=== PATIENT | male | born 1960 | race American Indian/Alaskan Native ===

== ENCOUNTER 2017-08-01 23:27 | Emergency (ER) | payer MEDICAID, OTHER ==
[2017-08-01 23:28] VITALS: BMI 29.6
[2017-08-01 23:34] VITALS: TEMP 98.1
[2017-08-01] MEDS ORDERED: DiphenhydrAMINE 50 mg/ml Inj IVP STA (23:44)
--- NOTE | 2017-08-01 23:44 | C.PDOC ---
History Of Present Illness 56 year old male presents to the Ed for evaluation of swelling of his legs and itchiness to his face after using dye for his greer earlier today. Patient denies SOB, CP, lip swelling, tongue, swelling, nausea, vomit, fever. Chief Complaint (Nursing): Allergic Reaction History Per: Patient History/Exam Limitations: no limitations Onset/Duration Of Symptoms: Hrs Current Symptoms Are (Timing): Still Present Context: Other (greer dye) Associated Symptoms: Skin Rash, Swelling Home/EMS Treatment: None Recent travel outside of the [place]: No Additional History Per: Patient Past Medical History Reviewed: Historical Data, Nursing Documentation, Vital Signs Vital Signs: Last Vital Signs Temp 98.1 F 08/01/17 23:30 Pulse 76 08/02/17 00:30 Resp 18 08/02/17 00:30 BP 122/80 08/02/17 00:30 Pulse Ox 98 08/02/17 01:08 - Medical History PMH: Gastritis, HTN Denies: Diabetes, Hepatitis, HIV, Chronic Kidney Disease, Seizures, Sexually Transmitted Disease Surgical History: No Surg Hx Family History: States: Unknown Family Hx - Social History Hx Alcohol Use: Yes Hx Substance Use: No - Immunization History Hx Tetanus Toxoid Vaccination: No Hx Influenza Vaccination: No Hx Pneumococcal Vaccination: No Review Of Systems Constitutional: Negative for: Fever, Chills ENT: Negative for: Mouth Swelling, Throat Swelling Cardiovascular: Negative for: Chest Pain Respiratory: Negative for: Cough, Shortness of Breath Gastrointestinal: Negative for: Nausea, Vomiting, Abdominal Pain Genitourinary: Negative for: Dysuria, Hematuria Skin: Positive for: Rash Neurological: Negative for: Weakness, Numbness Physical Exam - Physical Exam Appears: Non-toxic, No Acute Distress Skin: Normal Color, Warm, Dry Head: Atraumatic, Normacephalic, Other (erythema left face) Eye(s): bilateral: Normal Inspection Nose: No Discharge, No Deformity Oral Mucosa: Moist Tongue: No Swelling Lips: Swelling (lower lips) Neck: Normal ROM, Supple Chest: Symmetrical Cardiovascular: Rhythm Regular, No Murmur Respiratory: Normal Breath Sounds, No Rales, No Rhonchi, No Wheezing Gastrointestinal/Abdominal: Soft, No Tenderness, No Guarding, No Rebound Extremity: Normal ROM, No Pedal Edema, No Calf Tenderness, Capillary Refill (< 2 seconds), No Deformity, Swelling (lower legs) Neurological/Psych: Oriented x3, Normal Speech, Normal Cognition Gait: Steady ED Course And Treatment O2 Sat by Pulse Oximetry: 98 (On RA) Pulse Ox Interpretation: Normal Medical Decision Making Medical Decision Making: Impression : allergic reaction to greer dye Plan: * IV fluids * Benadryl 50 mg IVP * Pepcid 20 mg iVP * Solumedrol 125 mg IVP On reevaluation patient appears to have improved from the swelling of the lips and will be d/c home. Disposition Counseled Patient/Family Regarding: Diagnosis - Disposition Referrals: [facility] [Outside] Disposition: HOME/ ROUTINE Disposition Time: 01:06 Condition: STABLE Prescriptions: DiphenhydrAMINE [Benadryl] 25 mg PO Q6 #14 cap Methylprednisolone [Medrol Dose Pack (21 tabs)] 4 mg PO DAILY #21 mg Instructions: General Allergic Reaction (ED) Forms: [facility] (Greek) - POA Present On Arrival: None - Clinical Impression Clinical Impression: Allergic reaction - Scribe Statement The provider has reviewed the documentation as recorded by the Scribe Gareth Brown All medical record entries made by the Scribe were at my direction and personally dictated by me. I have reviewed the chart and agree that the record accurately reflects my personal performance of the history, physical exam, medical decision making, and the department course for this patient. I have also personally directed, reviewed, and agree with the discharge instructions and disposition.
[2017-08-01] MEDS ORDERED: DiphenhydrAMINE 50 mg/ml Inj ONE (23:46)
[2017-08-02 00:31] VITALS: BP 122/80; RESP 18
[2017-08-02 01:18] VITALS: PULSE 82; O2SAT 97
== END 2017-08-02 01:19 | disposition home or self-care (01) ==
LOC: C.ER 23:27
DX: T78.40XA Allergy, unspecified, initial encounter (principal)
CPT/HCPCS: 96374; 96375; 99284; J1200; J2930

== ENCOUNTER 2018-07-13 21:53 | Emergency (ER) | payer MEDICAID ==
[2018-07-13 21:54] VITALS: BMI 29.6
[2018-07-13] MEDS ORDERED: Sodium Chloride 0.9% 1,000 ML IV ONE (22:28)
[2018-07-13] MEDS ORDERED: Morphine 4 MG/ML VIAL ONE (22:44)
[2018-07-13] MEDS ORDERED: Sodium Chloride 0.9% 1,000 ML ONE (22:44)
--- NOTE | 2018-07-13 23:23 | C.PDOC ---
History Of Present Illness 57 y/o male, with history of chronic lower back pain and kidney stones, presents to ED stating that he started developing left flank pain earlier today. Patient denies trauma to the back. States that he was just walking when the pain started. Patient reports of some nausea and mild dysuria but no vomiting or diarrhea. Thinks he has some hematuria. Time Seen by Provider: 07/13/18 22:03 Chief Complaint (Nursing): Abdominal Pain History Per: Patient History/Exam Limitations: no limitations Onset/Duration Of Symptoms: Hrs Current Symptoms Are (Timing): Still Present Past Medical History Reviewed: Historical Data, Nursing Documentation, Vital Signs Vital Signs: Last Vital Signs Temp 98.2 F 07/13/18 21:55 Pulse 84 07/13/18 21:55 Resp 16 07/13/18 21:55 BP 178/119 H 07/13/18 21:55 Pulse Ox 100 07/13/18 21:55 - Medical History PMH: Gastritis, HTN Denies: Diabetes, Hepatitis, HIV, Chronic Kidney Disease, Seizures, Sexually Transmitted Disease Family History: States: No Known Family Hx - Social History Hx Alcohol Use: Yes Hx Substance Use: No - Immunization History Hx Tetanus Toxoid Vaccination: No Hx Influenza Vaccination: No Hx Pneumococcal Vaccination: No Review Of Systems Constitutional: Negative for: Fever Cardiovascular: Negative for: Chest Pain Respiratory: Negative for: Shortness of Breath Gastrointestinal: Positive for: Nausea, Other (Left flank pain). Negative for: Vomiting, Diarrhea Genitourinary: Positive for: Dysuria, Hematuria Musculoskeletal: Positive for: Back Pain (lower) Skin: Negative for: Rash Physical Exam - Physical Exam Appears: Non-toxic, In Acute Distress (Clutching L flank) Skin: Warm, Dry, No Rash Head: Atraumatic, Normacephalic Eye(s): bilateral: Normal Inspection Oral Mucosa: Moist Neck: Supple Chest: Symmetrical Cardiovascular: Rhythm Regular, No Murmur Respiratory: Normal Breath Sounds, No Rales, No Rhonchi, No Wheezing Gastrointestinal/Abdominal: Tenderness (to L flank) Extremity: Bilateral: Normal Color And Temperature, Normal ROM Neurological/Psych: Oriented x3, Normal Speech, Normal Motor, Normal Sensation ED Course And Treatment - Laboratory Results Result Diagrams: 07/13/18 23:27 07/13/18 23:27 O2 Sat by Pulse Oximetry: 100 (RA) Pulse Ox Interpretation: Normal - CT Scan/US Abd/Pel CT Other Rad Studies (CT/US): Read By Radiologist, Radiology Report Reviewed CT/US Interpretation: FINDINGS: LUNG BASES: There is parenchymal scarring and bronchial wall thickening at the right pulmonary base. Small bulla left pulmonary base. The heart is normal size. LIVER: Unremarkable. GALLBLADDER AND BILE DUCTS: The gallbladder appears within normal limits. No radioopaque gallstones are seen. No biliary ductal dilatation is evident. PANCREAS: Unr emarkable. SPLEEN: Unremarkable. ADRENAL GLANDS: Unremarkable. KIDNEYS, URETERS, AND BLADDER: There is mild left hydronephrosis and mild left hydroureter to the level of L5-S1 where there is a 5 mm partially obstructing calculus. There are proximal left periureteral inflammatory changes. There are no bladder calculi. there is a mid pole left renal cyst. There is a 3 mm posterior aspect isodense bulge of the left kidney, see series 3 image 58. Recommend ultrasound for further evaluation. This is not a typical dromedary hump. STOMACH AND BOWEL: Unremarkable appearance of the stomach and bowel. No evidence of bowel obstruction. No evidence suggesting enteritis or colitis. APPENDIX: No evidence of acute appendicitis on CT examination. PERITONEUM: No free fluid. No free air. LYMPH NODES: No lymphadenopathy is evident. VASCULATURE: No evidence of abdominal aortic aneurysm. BONES: No aggressive appearing osseous lesion. No acute osseous pathology evident. IMPRESSION: 1. T here is mild left hydronephrosis and mild left hydroureter to the level of L5-S1 where there is a 5 mm partially obstructing calculus. There are proximal left periureteral inflammatory changes. There are no bladder calculi. 2. There is a 3 mm posterior aspect isodense bulge of the left kidney, see series 3 image 58. Recommend ultrasound for further evaluation. This is not a typical dromedary hump. 3. There is parenchymal scarring and bronchial wall thickening at the right pulmonary base. Small bulla left pulmonary base. The heart is normal size. Medical Decision Making Medical Decision Making: Plan: --Abd/Pel CT --Bloodwork --Morphine 4 mg IV --IV fluids 1L --Toradol 30 mg IV --Urinalysis 2338- Patient re-evaluated. Appears much more comfortable, no longer clutching his flank, able to lay supine. CT results discussed. Awaiting bloodwork and UA. 0000- Lab results discussed with patient. Advised him to follow up with urology, he has seen one multiple times before (does not remember name, "spring Manley) for previous kidney stones. Will discharge with Rx for Flomax, Percocet and Ibuprofen for pain, and Zofran. Disposition - Disposition Disposition: HOME/ ROUTINE Disposition Time: 00:00 Condition: STABLE Additional Instructions: LEV GORDON, thank you for letting us take care of you today. Your provider was Anne Briceño MD and you were treated for LT FLANK PAIN. The emergency medical care you received today was directed at your acute symptoms. If you were prescribed any medication, please fill it and take as directed. It may take several days for your symptoms to resolve. Return to the Emergency Department if your symptoms worsen, do not improve, or if you have any other problems. Please contact your doctor or call one of the physicians/clinics you have been referred to that are listed on the Patient Visit Information form that is included in your discharge packet. Bring any paperwork you were given at discharge with you along with any medications you are taking to your follow up visit. Our treatment cannot replace ongoing medical care by a primary care provider outside of the emergency department. Thank you for allowing the [facility] team to be part of your care today. If you had an X-Ray or CT scan: A Radiologist will review the ED reading if any change in treatment is needed we will contact you. If you had a blood, urine, or wound culture: It will take several days for the results, if any change in treatment is needed we will contact you. If you had an STI test: It will take 48 hours for the results. Please call after 1 week if you have not heard back. Please follow up with your urologist as soon as possible. Prescriptions: oxyCODONE/Acetaminophen [Percocet 5/325 mg Tab] 1 ea PO Q6H PRN #9 tab PRN Reason: Pain, Severe (8-10) Instructions: Kidney Stones (DC) Forms: [facility] (Indonesian) - Clinical Impression Clinical Impression: Kidney stone - Scribe Statement The provider has reviewed the documentation as recorded by the Krystal Rosas Provider Attestation: All medical record entries made by the Krystal were at my direction and personally dictated by me. I have reviewed the chart and agree that the record accurately reflects my personal performance of the history, physical exam, medical decision making, and the department course for this patient. I have also personally directed, reviewed, and agree with the discharge instructions and disposition.
[2018-07-13 23:36] LABS: BASO # 0.1 K/uL (0.0-0.2); BASO % 0.6 % (0.0-2.0); EOS # 0.1 K/uL (0.0-0.7); EOS % 1.2 % (0.0-4.0); HEMOGLOBIN 12.4 g/dL (12.0-18.0); LYMPH # 2.4 K/uL (1.0-4.3); LYMPH % 24.4 % (20.0-40.0); MEAN CELL VOLUME 80.4 fL (80.0-94.0); MEAN CORPUSCULAR HEMOGLOBIN 25.2 pg (27.0-31.0); MEAN CORPUSCULAR HGB CONC 31.4 g/dL (33.0-37.0); MEAN PLATELET VOLUME 8.3 fL (7.2-11.7); MONO # 0.6 K/uL (0.0-0.8); MONO % 6.2 % (0.0-10.0); NEUT # 6.6 K/uL (1.8-7.0); NEUT % 67.6 % (50.0-75.0); NRBC % 0.1 % (0.0-2.0); RBC 4.92 Mil/uL (4.40-5.90); RED CELL DISTRIBUTION WIDTH 12.6 % (11.5-14.5); WHITE BLOOD COUNT 9.7 K/uL (4.8-10.8)
[2018-07-13 23:46] LABS: BLOOD UREA NITROGEN 16 mg/dL (9-20); CALCIUM 9.6 mg/dl (8.6-10.4); GFR NON-AFRICAN AMERICAN > 60
[2018-07-14 00:04] LABS: URINE BACTERIA RARE (<OCC); URINE BILIRUBIN NEGATIVE (NEGATIVE); URINE BLOOD 3+ (NEGATIVE); URINE CLARITY Hazy (Clear); URINE COLOR Yellow (YELLOW); URINE GLUCOSE (UA) NORMAL (Normal); URINE LEUKOCYTE ESTERASE NEG Leu/uL (Negative); URINE PROTEIN 2+ mg/dL (NEGATIVE); URINE UROBILINOGEN NORMAL mg/dL (0.2-1.0)
[2018-07-14 00:45] VITALS: BP 148/65; PULSE 83; RESP 16; TEMP 98.3
--- NOTE | 2018-07-14 10:00 | CT ---
Date of service: 07/13/2018 PROCEDURE: CT Abdomen and Pelvis without intravenous contrast HISTORY: flank pain h/o kidney stone COMPARISON: None. TECHNIQUE: CT scan of the abdomen and pelvis was performed without administration of intravenous contrast. Oral contrast was not administered. Coronal and sagittal reformatted images were obtained. . Radiation dose: Total exam DLP = 583.19 mGy-cm. This CT exam was performed using one or more of the following dose reduction techniques: Automated exposure control, adjustment of the mA and/or kV according to patient size, and/or use of iterative reconstruction technique. FINDINGS: LOWER THORAX: There is a 7 mm subpleural nodule in the right middle lobe (series 2, image 1). There is subsegmental atelectasis in the right lung base. There are scattered emphysematous bullae in the visualized lungs. LIVER: Normal in size. No intrahepatic ductal dilatation. GALLBLADDER AND BILE DUCTS: No calcified gallstones. No biliary dilatation PANCREAS: Normal in size. No ductal dilatation. SPLEEN: Normal in size. ADRENALS: Normal in size. No discrete nodule. KIDNEYS AND URETERS: The right kidney is normal in size. There is a 2.0 x 1.9 cm high attenuation lesion in the interpolar region and subcentimeter high attenuation lesion in the lower pole. There is a punctate nonobstructing stone in the lower pole. No hydronephrosis. The left kidney is normal in size. There is a 6 mm nonobstructing stone in the upper pole. There is a 4 mm obstructing stone in the mid ureter at the level of L4-5 with resultant moderate proximal hydroureteronephrosis, edema of the left kidney and perinephric fat stranding. There is a 3.7 x 2.9 cm simple cyst in the left interpolar region. VASCULATURE: No aortic aneurysm. No aortic atherosclerotic calcification or mural plaque present. BOWEL: The small bowel loops are normal in caliber. The colon is normal in size. No bowel dilatation or wall thickening. No bowel obstruction. APPENDIX: Normal appendix. PERITONEUM: No free fluid. No free air. LYMPH NODES: No enlarged lymph nodes. BLADDER: Well distended and grossly normal in appearance. REPRODUCTIVE: The prostate gland is normal in size. BONES: No acute fracture. OTHER FINDINGS: None. IMPRESSION: 1. Acute left obstructive uropathy resulting from a 4 mm stone in the mid ureter at the level of L4-5. 2. 6 mm nonobstructing stone in the upper pole of the left kidney. Punctate nonobstructing stone in the upper pole of the right kidney. 3. 2.0 cm high density lesion in the interpolar region of the right kidney and subcentimeter high density lesion in the lower pole of the right kidney likely represent hemorrhagic cyst however solid neoplasm cannot be entirely excluded on this noncontrast CT examination. Correlation with retroperitoneal ultrasound is recommended for further evaluation. Alternatively, CT scan of the abdomen without and with intravenous contrast with renal protocol may be performed for definitive evaluation. A preliminary report was provided by [facility].
[2018-07-14 18:47] VITALS: O2SAT 100
== END 2018-07-14 00:45 | disposition home or self-care (01) ==
LOC: C.ER 21:53
DX: N20.0 Calculus of kidney (principal); I10 Essential (primary) hypertension; Z87.442 Personal history of urinary calculi; F17.210 Nicotine dependence, cigarettes, uncomplicated
CPT/HCPCS: 74176; 80048; 81001; 85025; 96374; 96375; 99285; J1885; J2270; J7030

== ENCOUNTER 2018-08-21 18:37 | Emergency (ER) | payer MEDICAID ==
[2018-08-21 18:37] VITALS: BMI 29.6
[2018-08-21 18:44] VITALS: RESP 18
[2018-08-21] MEDS ORDERED: Sodium Chloride 0.9% 1,000 ML IV ONE ×2 (19:14→20:00)
--- NOTE | 2018-08-21 19:14 | C.PDOC ---
History Of Present Illness Patient presents to the ER with a complaint of sharp stabbing left flank pain. Patient has Hx of kidney stone, was seen here on 07/13/18 and found to have left calculus. Denies fever, chills, nausea, or vomiting. Time Seen by Provider: 08/21/18 19:13 Chief Complaint (Nursing): Male Genitourinary History Per: Patient History/Exam Limitations: no limitations Onset/Duration Of Symptoms: Hrs Current Symptoms Are (Timing): Still Present Severity: Moderate Pain Scale Rating Of: 5 Quality Of Discomfort: Sharp, Stabbing Associated Symptoms: denies: Fever, Chills, Nausea, Vomiting Alleviating Factors: None Recent travel outside of the [place]: No Past Medical History Reviewed: Historical Data, Nursing Documentation, Vital Signs Vital Signs: Last Vital Signs Temp 97.8 F 08/21/18 18:39 Pulse 82 08/21/18 18:39 Resp 18 08/21/18 18:39 BP 158/82 H 08/21/18 18:39 Pulse Ox 99 08/21/18 18:39 - Medical History PMH: Gastritis, HTN, Kidney Stones Denies: Diabetes, Hepatitis, HIV, Chronic Kidney Disease, Seizures, Sexually Transmitted Disease Family History: States: No Known Family Hx - Social History Hx Alcohol Use: Yes Hx Substance Use: No - Immunization History Hx Tetanus Toxoid Vaccination: No Hx Influenza Vaccination: No Hx Pneumococcal Vaccination: No Review Of Systems Constitutional: Negative for: Fever, Chills Cardiovascular: Negative for: Chest Pain, Palpitations Respiratory: Negative for: Cough, Shortness of Breath Gastrointestinal: Negative for: Nausea, Vomiting Musculoskeletal: Positive for: Other (Left flank pain) Neurological: Negative for: Weakness, Numbness Physical Exam - Physical Exam Appears: Non-toxic Skin: Warm, Dry Head: Normacephalic Oral Mucosa: Moist Chest: Symmetrical, No Tenderness Cardiovascular: Rhythm Regular Respiratory: No Rales, No Rhonchi, No Wheezing Gastrointestinal/Abdominal: Soft, No Tenderness Back: Other (Left flank tenderness) Neurological/Psych: Oriented x3 ED Course And Treatment - Laboratory Results Result Diagrams: 08/21/18 19:26 08/21/18 19:26 O2 Sat by Pulse Oximetry: 99 (Room air) Pulse Ox Interpretation: Normal Progress Note: Blood work and urinalysis ordered. IV fluids, pepcid, toradol, and zofran administered. Reevaluation Time: 21:49 Reassessment Condition: Improved Medical Decision Making Medical Decision Making: Upon provider reevaluation patient is feeling better, is medically stable, and requires no further treatment in the ED at this time. Patient will be discharged home with Rx for tramadol, zofran, flomax . Counseling was provided and all questions were answered regarding diagnosis and need for follow up with jm. There is agreement to discharge plan. Return if symptoms persist or worsen. Disposition Counseled Patient/Family Regarding: Studies Performed, Diagnosis, Need For Followup, Rx Given - Disposition Referrals: Dhara Penny MD [Staff Provider] - Disposition: HOME/ ROUTINE Disposition Time: 19:14 Condition: FAIR Additional Instructions: Please return if symptoms recur Prescriptions: Ondansetron ODT [Zofran ODT] 1 odt PO BID PRN #6 odt PRN Reason: Nausea/Vomiting Tamsulosin [Flomax] 0.4 mg PO DAILY #14 cap traMADol [Ultram] 50 mg PO TID PRN #15 tab PRN Reason: Pain, Severe (8-10) Instructions: Kidney Stones (DC), Renal Colic (DC), Kidney Stone Diet, Hydronephrosis, Adult (DC) Forms: [facility] (Swedish) - Clinical Impression Clinical Impression: Kidney stone, Renal colic on left side - Scribe Statement The provider has reviewed the documentation as recorded by the Scribdemond Nava All medical record entries made by the Scribe were at my direction and personally dictated by me. I have reviewed the chart and agree that the record accurately reflects my personal performance of the history, physical exam, medic al decision making, and the department course for this patient. I have also personally directed, reviewed, and agree with the discharge instructions and disposition.
[2018-08-21] MEDS ORDERED: Sodium Chloride 0.9% 1,000 ML ONE ×2 (19:30→20:18)
[2018-08-21 19:40] LABS: BASO % 0.4 % (0.0-2.0); EOS # 0.3 K/uL (0.0-0.7); EOS % 4.2 % (0.0-4.0); HEMOGLOBIN 10.8 g/dL (12.0-18.0); LYMPH # 3.2 K/uL (1.0-4.3); LYMPH % 42.4 % (20.0-40.0); MEAN CELL VOLUME 81.3 fL (80.0-94.0); MEAN CORPUSCULAR HEMOGLOBIN 25.5 pg (27.0-31.0); MEAN CORPUSCULAR HGB CONC 31.4 g/dL (33.0-37.0); MONO # 0.7 K/uL (0.0-0.8); MONO % 8.8 % (0.0-10.0); NEUT # 3.4 K/uL (1.8-7.0); NEUT % 44.2 % (50.0-75.0); RBC 4.22 Mil/uL (4.40-5.90); RED CELL DISTRIBUTION WIDTH 12.9 % (11.5-14.5); WHITE BLOOD COUNT 7.6 K/uL (4.8-10.8)
[2018-08-21 19:42] LABS: ALB/GLOB RATIO 1.6 (1.0-2.1); ALBUMIN 4.4 g/dL (3.5-5.0); AST/SGOT 23 U/L (17-59); BLOOD UREA NITROGEN 15 mg/dL (9-20); GFR NON-AFRICAN AMERICAN > 60; LIPASE 113 U/L (23-300); URINE BILIRUBIN NEGATIVE (NEGATIVE); URINE BLOOD 3+ (NEGATIVE); URINE CLARITY Hazy (Clear); URINE COLOR Red (YELLOW); URINE GLUCOSE (UA) NORMAL (Normal); URINE LEUKOCYTE ESTERASE TRACE Leu/uL (Negative); URINE PROTEIN 2+ mg/dL (NEGATIVE); URINE UROBILINOGEN NORMAL mg/dL (0.2-1.0)
[2018-08-21 19:47] LABS: INR 1.1; PROTHROMBIN TIME 12.3 SECONDS (9.7-12.2)
[2018-08-21 19:54] LABS: ALT/SGPT < 6 U/L (21-72)
[2018-08-21 22:18] VITALS: BP 137/63; PULSE 71; TEMP 97; O2SAT 97
--- NOTE | 2018-08-22 10:55 | CT ---
PROCEDURE: CT Abdomen and Pelvis without Oral or IV contrast. HISTORY: left kidney stone COMPARISON: CT abdomen and pelvis without contrast performed 07/13/18 TECHNIQUE: Contiguous axial images of the abdomen and pelvis. No oral or IV contrast administered. Coronal and Sagittal reformats generated and reviewed. Radiation dose: Total exam DLP = 621.28 mGy-cm. This CT exam was performed using one or more of the following dose reduction techniques: Automated exposure control, adjustment of the mA and/or kV according to patient size, and/or use of iterative reconstruction technique. FINDINGS: There is limited evaluation of the solid organs without the administration of IV contrast. LOWER THORAX: Bibasilar atelectasis. No visible pleural effusion or pneumothorax. LIVER: Unremarkable unenhanced appearance. GALLBLADDER AND BILE DUCTS: Contracted gallbladder limits evaluation; otherwise unremarkable. PANCREAS: Unremarkable unenhanced appearance. SPLEEN: Unremarkable unenhanced appearance. ADRENALS: Unremarkable unenhanced appearance. KIDNEYS AND URETERS: 5 mm and 3 mm left mid and distal ureteral calculi with proximal hydroureteronephrosis. Indeterminate 2.1 cm right lateral mid pole renal mass. BLADDER: The urinary bladder appears unremarkable. REPRODUCTIVE: The prostate gland measures approximately 4.7 x 4.8 cm. APPENDIX: The appendix appears within normal limits of caliber. No secondary signs of acute appendicitis. BOWEL: The stomach is nondistended. Lack of oral contrast limits evaluation for bowel pathology. The bowel loops appear within normal limits of caliber without evidence of intestinal obstruction. PERITONEUM: No significant free fluid. No definite free air. LYMPH NODES: Sub cm nonspecific mesenteric lymph nodes. VASCULATURE: No atherosclerotic calcifications of the aorta. No aortic aneurysm. BONES: No acute osseous abnormality is detected. OTHER FINDINGS: Ill-defined mesenteric stranding/edema. Bilateral fat containing inguinal hernias. IMPRESSION: 5 mm and 3 mm left mid and distal ureteral calculi with proximal hydroureteronephrosis. Indeterminate 2.1 cm right lateral mid pole renal mass. Recommend ultrasound for further characterization. Nonspecific mesenteric edema/inflammatory stranding and sub cm mesenteric lymph nodes. Correlate clinically for infectious/inflammatory etiologies. Enlarged prostate gland. Recommend correlation with PSA. Additional findings as above. Preliminary impression was provided by [employer]. Study marked for PA review. Recommend correlation with PSA for enlarged prostate gland. Additional findings as above.
== END 2018-08-21 22:17 | disposition home or self-care (01) ==
LOC: C.ER 18:37
DX: N20.0 Calculus of kidney (principal); I10 Essential (primary) hypertension
CPT/HCPCS: 74176; 80053; 81001; 83690; 85025; 85610; 85730; 96361; 96374; 96375; 99285; J1885; J2405; J7030

== ENCOUNTER 2018-09-23 11:01 | Outpatient (CLI) | payer MEDICAID | END 2018-09-23 11:02 | disposition home or self-care (01) | LOC: C.RADH 11:01 ==